=== PATIENT | male | born 1955 | race American Indian/Alaskan Native ===

== ENCOUNTER 2016-08-09 18:59 | Emergency (ER) | payer MEDICAID ==
[~2016-08-09] VITALS: Ht 177.8 cm; Wt 99.2 kg
[~2016-08-09 18:59] MED LIST: AMIT25TA PO; AMLO5TAB4 PO; ASPI-496 PO; ATOR10TA9 PO; CARV-39 PO; CARV12.52 PO; ERGO500047 PO; FERR325T20 PO; FURO20TA3 PO; FURO80TA77 PO; GLIP10TA13 PO; HYDR-3240 PO; HYDR-3343 PO; HYDR100T25 PO; INSU100I28 SQ-INSULIN; INSU100V13 SQ-INSULIN; INSU100V8 SQ; LISI40TA PO; METO-99 PO; POTA10TA11 PO; RISP0.5T3 PO; SODI650T PO; TERA5CAP3 PO; VITAMIN C; WARF7.5T PO
[2016-08-09 19:04] VITALS: BP 149/81
[2016-08-09] MEDS ORDERED: SODIUM CHLORIDE FLUSH 10ML SYR IVF ONE (19:30)
[2016-08-09 19:56] LABS: HEMOGLOBIN 10.3 g/dL (13.7-18.0)
[2016-08-09 20:06] LABS: BLOOD UREA NITROGEN 85 mg/dL (7-18)
== END 2016-08-09 21:04 | disposition home or self-care (01) ==
LOC: ED 20:58
DX: G51.0 Bell's palsy (principal); E11.22 Type 2 diabetes mellitus with diabetic chronic kidney disease; I12.0 Hypertensive chronic kidney disease with stage 5 chronic kidney disease or end stage renal disease; N18.6 End stage renal disease; E78.00 Pure hypercholesterolemia, unspecified; E11.65 Type 2 diabetes mellitus with hyperglycemia; E87.5 Hyperkalemia; Z99.2 Dependence on renal dialysis
CPT/HCPCS: 36415; 70450; 80048; 82040; 85025; 93005

== ENCOUNTER → 2016-08-14 | Outpatient (CLI) | payer MEDICAID | LOC: RAD 12:48 | PROVIDERS: ATTEND Family Medicine | DX: Z02.9 Encounter for administrative examinations, unspecified (principal) ==